=== PATIENT | female | born 1935 | race Native Hawaiian/Other Pacific Islander ===

== ENCOUNTER 2016-06-21 08:12 | Outpatient (CLI) | payer OTHER ==
[~2016-06-21 08:12] MED LIST: ALBUAER5 INH; ALBUTEROL0.083 % IN; BENZONATATE200 MG PO; BUDE1AER3 INH; CENTRUM SILVER PO; DORZOL/TIMOL1 ML OP; FISH OIL1000 M1 PO; FLAX SEED1000 MG PO; FLUTICASONE50 MCG; FURO40TA93 PO; GABA300C2 PO; INSU100I2 SC; INSU100P SC; LANTUS SOLOSTAR SC; LEVAQUIN500 MG OR; LOSA50TA PO; LUMIGAN0.01 % OP; MAG OXIDE400 M2 PO; MIRALAX3350 N1 OR; MONT10TA PO; NEXIUM40 M1 PO; PILOCARPINE1 % OP; SIMV40TA57; SIMV40TA57 PO; VICTOZA18 MG/3 ML SC; VIT C/VIT E OR; VITAMIN D35000 UNIT PO; ZYRTEC ALLGY10 MG PO
[2016-06-21 09:47] LABS: POTASSIUM 3.7 mmol/L (3.6-5.2)
[2016-06-21 09:49] LABS: PLATELET COUNT 192 K/uL (152-353)
== END 2016-06-21 19:08 | disposition home or self-care (01) ==
LOC: LABW 08:12
PROVIDERS: Internal Medicine Nephrology
DX: I12.9 Hypertensive chronic kidney disease with stage 1 through stage 4 chronic kidney disease, or unspecified chronic kidney disease (principal); N18.4 Chronic kidney disease, stage 4 (severe); D63.1 Anemia in chronic kidney disease; E11.22 Type 2 diabetes mellitus with diabetic chronic kidney disease
CPT/HCPCS: 36415; 80053; 80061; 81000; 82043; 82570; 83036; 83735; 84100; 84155; 84439; 84443; 85027

== ENCOUNTER 2016-12-18 08:25 | Outpatient (CLI) | payer OTHER ==
[2016-12-18 08:42] LABS: PLATELET COUNT 200 K/uL (152-353)
[2016-12-18 09:16] LABS: POTASSIUM 3.7 mmol/L (3.6-5.2)
== END 2016-12-18 09:25 | disposition home or self-care (01) ==
LOC: LABW 08:25
PROVIDERS: Internal Medicine Nephrology
DX: I12.9 Hypertensive chronic kidney disease with stage 1 through stage 4 chronic kidney disease, or unspecified chronic kidney disease (principal); N18.3 Chronic kidney disease, stage 3 (moderate); D63.1 Anemia in chronic kidney disease; E11.22 Type 2 diabetes mellitus with diabetic chronic kidney disease; N25.81 Secondary hyperparathyroidism of renal origin; E83.42 Hypomagnesemia; R82.99 Other abnormal findings in urine
CPT/HCPCS: 36415; 80053; 80061; 81000; 82043; 82306; 82570; 83036; 83735; 83970; 84100; 84439; 84443; 85027; 87077; 87086; 87088; 87185

== ENCOUNTER 2017-08-14 08:38 | Outpatient (CLI) | payer OTHER ==
[2017-08-14 09:10] LABS: PLATELET COUNT 226 K/uL (152-353)
[2017-08-14 09:55] LABS: POTASSIUM 3.8 mmol/L (3.6-5.2)
== END 2017-08-14 22:54 | disposition home or self-care (01) ==
LOC: LABW 08:38
PROVIDERS: Internal Medicine
DX: E11.9 Type 2 diabetes mellitus without complications (principal); R82.99 Other abnormal findings in urine
CPT/HCPCS: 36415; 80053; 80061; 81000; 82043; 82570; 83036; 83735; 84439; 84443; 85027; 87086; 87088

== ENCOUNTER 2018-02-09 08:07 | Outpatient (CLI) | payer OTHER ==
[2018-02-09 08:28] LABS: PLATELET COUNT 238 K/uL (152-353)
[2018-02-09 08:49] LABS: POTASSIUM 4.1 mmol/L (3.6-5.2)
== END 2018-02-09 19:41 | disposition home or self-care (01) ==
LOC: LABW 08:07
PROVIDERS: Internal Medicine
DX: E11.22 Type 2 diabetes mellitus with diabetic chronic kidney disease (principal); R82.99 Other abnormal findings in urine
CPT/HCPCS: 36415; 80053; 80061; 81000; 82043; 82570; 83036; 84439; 84443; 85027; 87086; 87088

== ENCOUNTER 2018-02-10 22:52 | Inpatient (IN) | payer OTHER ==
[~2018-02-10] VITALS: Ht 157.5 cm; Wt 121.2 kg
[2018-02-10 22:48] VITALS: BP 170/68; TEMP 98.6
[2018-02-11 00:07] LABS: POTASSIUM 4.4 mmol/L (3.6-5.2); SODIUM 141 mmol/L (136-145)
[2018-02-11 04:10] VITALS: BP 143/51; TEMP 98.8; Ht 157.5 cm; Wt 121.2 kg
[2018-02-11] MEDS ORDERED: FUROSEMIDE80 MG PO (05:47)
[2018-02-11] MEDS ORDERED: FURO40TA93 PO ×2 (05:49→05:51)
[2018-02-11] MEDS ORDERED: FLONASE AL50 MCG/ACT (05:53)
[2018-02-11] MEDS ORDERED: GABA300C2 PO ×2 (05:54→05:56)
[2018-02-11] MEDS ORDERED: TRESIBA FL100 UNIT/M SC (05:59)
[2018-02-11] MEDS ORDERED: LOSA50TA PO (06:01)
[2018-02-11] MEDS ORDERED: FISH OIL PO (06:05)
[2018-02-11] MEDS ORDERED: [UNRECOGNIZED DRUG - OTHER] OR (06:09)
[2018-02-11] MEDS ORDERED: COMBIVENT MDI INH (06:12)
[2018-02-11] MEDS ORDERED: PATADAY0.2 % OPTH (06:14)
[2018-02-11 08:00] VITALS: BP 123/42; TEMP 99.3
[2018-02-11 09:34] LABS: POTASSIUM 4.1 mmol/L (3.6-5.2)
[2018-02-11 12:00] VITALS: BP 134/32; TEMP 98.6
[2018-02-11 16:00] VITALS: BP 125/41; TEMP 98.4
[2018-02-11 20:00] VITALS: BP 140/39; TEMP 98.7
[2018-02-12] VITALS: BP 145/46; TEMP 98.2
[2018-02-12 04:00] VITALS: BP 149/45; TEMP 98.6
[2018-02-12 05:54] LABS: PLATELET COUNT 226 K/uL (152-353)
[2018-02-12 06:20] LABS: POTASSIUM 3.6 mmol/L (3.6-5.2); SODIUM 142 mmol/L (136-145)
[2018-02-12 08:00] VITALS: BP 140/41; TEMP 98
[2018-02-12] MEDS ORDERED: NEXIUM40 M1 PO (09:08)
[2018-02-12 12:03] VITALS: BP 167/47; TEMP 98.4
[2018-02-12 16:00] VITALS: BP 120/51; TEMP 98.1
[2018-02-12 20:00] VITALS: BP 137/42; TEMP 98.4
[2018-02-13 00:20] VITALS: BP 116/35; TEMP 98.5
[2018-02-13 04:00] VITALS: BP 139/45; TEMP 98.3
[2018-02-13 06:07] LABS: PLATELET COUNT 231 K/uL (152-353)
[2018-02-13 08:20] VITALS: BP 159/41; TEMP 97.9
[2018-02-13 11:56] VITALS: BP 143/47; TEMP 98.7
[2018-02-13 16:00] VITALS: BP 156/56; TEMP 98.7
[2018-02-13 20:00] VITALS: BP 154/55; TEMP 98.1
[2018-02-14 00:16] VITALS: BP 155/55; TEMP 97.8
[2018-02-14 04:00] VITALS: BP 124/64; TEMP 98.6
[2018-02-14 05:29] LABS: PLATELET COUNT 251 K/uL (152-353)
[2018-02-14 05:47] LABS: POTASSIUM 4.5 mmol/L (3.6-5.2)
[2018-02-14 08:19] VITALS: BP 179/60; TEMP 98
[2018-02-14 12:10] VITALS: BP 178/64; TEMP 98.2
[2018-02-14 15:56] VITALS: BP 181/62; TEMP 98.2
[2018-02-14 20:00] VITALS: BP 142/56; TEMP 97.9
[2018-02-15] VITALS: BP 158/55; TEMP 97.5
[2018-02-15 03:56] VITALS: BP 139/53; TEMP 98.2
[2018-02-15 07:06] LABS: PLATELET COUNT 292 K/uL (152-353)
[2018-02-15 07:16] LABS: POTASSIUM 4.6 mmol/L (3.6-5.2)
[2018-02-15 08:00] VITALS: BP 128/62; TEMP 98
[2018-02-15 12:00] VITALS: BP 170/53; TEMP 98.2
[2018-02-15 16:08] VITALS: BP 174/95; TEMP 98.6
[2018-02-15 20:00] VITALS: BP 151/60; TEMP 98.2
[2018-02-16] VITALS: BP 155/50; TEMP 98.1
[2018-02-16 04:04] VITALS: BP 1238/69; TEMP 97.9
[2018-02-16 08:00] VITALS: BP 160/52; TEMP 98.1
[2018-02-16 08:08] LABS: PLATELET COUNT 321 K/uL (152-353)
[2018-02-16 09:16] LABS: POTASSIUM 4.2 mmol/L (3.6-5.2)
[2018-02-16 12:00] VITALS: BP 164/50; TEMP 98.1
[2018-02-16 16:00] VITALS: BP 169/62; TEMP 98.5
[2018-02-16 20:00] VITALS: BP 145/54; TEMP 98
[2018-02-17 00:09] VITALS: BP 132/38; TEMP 98.1
[2018-02-17 04:00] VITALS: BP 149/61; TEMP 98.7
[2018-02-17 05:56] LABS: PLATELET COUNT 291 K/uL (152-353)
[2018-02-17 06:34] LABS: POTASSIUM 4.5 mmol/L (3.6-5.2)
[2018-02-17 08:00] VITALS: BP 163/55; TEMP 98
[2018-02-17 12:00] VITALS: BP 115/49; TEMP 98.3
[2018-02-17 16:03] VITALS: BP 171/58; TEMP 98.2
[2018-02-17 20:00] VITALS: BP 154/35; TEMP 98.2
[2018-02-18] VITALS: BP 138/38; TEMP 97.8
[2018-02-18 04:00] VITALS: BP 154/41; TEMP 98
[2018-02-18 08:00] VITALS: BP 166/49; TEMP 97.8
[2018-02-18 12:00] VITALS: BP 156/59; TEMP 98.3
[2018-02-18 16:04] VITALS: BP 134/49; TEMP 98
== END 2018-02-18 16:00 | disposition swing bed (61) | DRG 291 ==
LOC: ED 22:52 → MED/SURG 02-11 02:00
PROVIDERS: Internal Medicine; ADMIT Internal Medicine
DX: I50.1 Left ventricular failure, unspecified (principal); J18.8 Other pneumonia, unspecified organism; I13.0 Hypertensive heart and chronic kidney disease with heart failure and stage 1 through stage 4 chronic kidney disease, or unspecified chronic kidney disease; N18.4 Chronic kidney disease, stage 4 (severe); J44.0 Chronic obstructive pulmonary disease with (acute) lower respiratory infection; J45.901 Unspecified asthma with (acute) exacerbation; J44.1 Chronic obstructive pulmonary disease with (acute) exacerbation; L03.116 Cellulitis of left lower limb; L03.115 Cellulitis of right lower limb; E11.22 Type 2 diabetes mellitus with diabetic chronic kidney disease; J20.9 Acute bronchitis, unspecified; E11.628 Type 2 diabetes mellitus with other skin complications; Z95.0 Presence of cardiac pacemaker; R62.7 Adult failure to thrive; D64.89 Other specified anemias; R82.99 Other abnormal findings in urine
CPT/HCPCS: 36415; 36600; 51702; 80048; 80053; 80061; 81000; 82043; 82550; 82570; 82805; 82948; 83036; 83735; 83880; 84439; 84443; 84484; 85027; 87086; 87088; 93005; 93306; 94640; 94664; 94760; 96372; 96374; 99284; J1956; J1644; J1650; J1815; J1940; J2920

== ENCOUNTER 2018-02-18 16:00 | Inpatient (IN) | payer OTHER ==
[~2018-02-18] VITALS: Ht 157.5 cm; Wt 122.1 kg
[~2018-02-18 16:00] MED LIST changes: +COMBIVENT MDI INH; +FISH OIL PO; +FLONASE AL50 MCG/ACT; +FUROSEMIDE80 MG PO; +PATADAY0.2 % OPTH; +TRESIBA FL100 UNIT/M SC; +[UNRECOGNIZED DRUG - OTHER] OR
[2018-02-19 06:13] VITALS: BP 161/52; TEMP 98.1; Ht 157.5 cm; Wt 122.1 kg
[2018-02-19 08:56] LABS: PLATELET COUNT 304 K/uL (152-353)
[2018-02-19 09:01] LABS: POTASSIUM 4.2 mmol/L (3.6-5.2)
[2018-02-19 20:00] VITALS: BP 159/52; TEMP 98.4
[2018-02-20 08:16] VITALS: BP 197/51; TEMP 98
[2018-02-20 20:24] VITALS: BP 121/55; TEMP 98.1
[2018-02-21 08:00] VITALS: BP 169/61; TEMP 97.6
[2018-02-21 20:05] VITALS: BP 159/62; TEMP 98.5
[2018-02-22 20:00] VITALS: BP 114/48; TEMP 98.3
[2018-02-24 20:00] VITALS: BP 124/70; TEMP 98.2
[2018-02-25 20:31] VITALS: BP 161/56; TEMP 98
[2018-02-26 06:17] LABS: PLATELET COUNT 231 K/uL (152-353)
[2018-02-26 06:22] LABS: POTASSIUM 3.9 mmol/L (3.6-5.2)
[2018-02-26 07:00] VITALS: BP 150/57; TEMP 98
[2018-02-26 20:14] VITALS: BP 155/52; TEMP 98.1
[2018-02-27 06:05] LABS: POTASSIUM 4.1 mmol/L (3.6-5.2)
[2018-02-27 06:14] LABS: PLATELET COUNT 231 K/uL (152-353)
[2018-02-27 08:22] VITALS: BP 169/49; TEMP 98.6
[2018-02-27 19:35] VITALS: BP 166/59; TEMP 98.3
[2018-02-28 08:20] VITALS: BP 197/94; TEMP 98.7
[2018-02-28 20:06] VITALS: BP 145/57; TEMP 98.3
[2018-03-01 20:00] VITALS: BP 155/51; TEMP 98.5
[2018-03-02 20:20] VITALS: BP 170/48; TEMP 98.1
[2018-03-03 21:26] VITALS: BP 157/72; TEMP 98
[2018-03-04 20:00] VITALS: BP 147/53; TEMP 98.5
[2018-03-05 07:22] LABS: PLATELET COUNT 180 K/uL (152-353)
[2018-03-05 07:27] LABS: POTASSIUM 4.1 mmol/L (3.6-5.2)
[2018-03-06 20:03] VITALS: BP 153/85; TEMP 98.5
[2018-03-07 20:01] VITALS: BP 131/50; TEMP 98.8
[2018-03-08 20:00] VITALS: BP 152/58; TEMP 98
[2018-03-09 20:28] VITALS: BP 153/54; TEMP 98.5
== END 2018-03-10 12:25 | disposition home or self-care (01) | DRG 556 ==
LOC: MED/SURG 16:00
PROVIDERS: ADMIT Internal Medicine
DX: M62.81 Muscle weakness (generalized) (principal); N17.8 Other acute kidney failure; I50.9 Heart failure, unspecified; R06.02 Shortness of breath; E11.9 Type 2 diabetes mellitus without complications; I10 Essential (primary) hypertension; N18.9 Chronic kidney disease, unspecified; R60.0 Localized edema; J44.9 Chronic obstructive pulmonary disease, unspecified; E66.01 Morbid (severe) obesity due to excess calories
CPT/HCPCS: 36415; 80053; 80069; 81000; 82306; 82570; 82607; 82728; 82747; 82947; 83540; 83735; 83970; 84100; 84155; 84165; 85027; 87077; 87086; 87088; 87186; 94664; 94760; J1335; J1650; J1815